=== PATIENT | male | born 2000 | race Caucasian/White ===

== ENCOUNTER 2021-04-07 20:44 | Emergency (ER) | payer OTHER ==
[2021-04-07 22:33] LABS: EOSINOPHIL 0.1 % (0-5); HCT 43.9 % (42.0-52.0); HGB 14.8 g/dl (13.2-18.0); LYMPHOCYTE 51.3 % (15-48); MCH 28.8 pg (25.0-31.0); MCHC 33.7 g/dL (32.0-36.0); MCV 85.4 fL (78.0-100.0); MONOCYTE 7.7 % (0-12); MPV 8.7 fL (6.0-9.5); NRBC 0; PLT 196 K/uL (150-400); RBC 5.14 M/uL (4.70-6.00); RDW 12.8 % (11.5-14.0); WBC 14.2 K/uL (4.0-10.5)
[2021-04-07 22:48] LABS: NEUTROPHIL 39.5 % (41-80)
[2021-04-07 22:52] LABS: ALBUMIN 3.8 g/dL (3.4-5.0); BILIRUBIN - TOTAL 0.6 mg/dL (0.2-1.0); BUN/CREAT RATIO (CALC) 9.2 RATIO; CREATININE 0.98 mg/dL (0.67-1.17); GLOBULIN (CALCULATION) 3.7 g/dL; POTASSIUM 3.8 mmol/L (3.5-5.1); TOTAL PROTEIN 7.5 g/dL (6.4-8.2)
[2021-04-07 23:37] LABS: BILIRUBIN NEGATIVE (NEGATIVE); BLOOD NEGATIVE Ery/uL (NEGATIVE); CLARITY CLEAR (CLEAR); COLOR YELLOW (YELLOW); GLUCOSE (U) NORMAL (NORMAL); LEUKOCYTES NEGATIVE Leu/uL (NEGATIVE); NITRITE NEGATIVE (NEGATIVE); PROTEIN NEGATIVE (NEGATIVE); SPECIFIC GRAVITY 1.015 (1.001-1.030); UROBILINOGEN 0.2 mg/dL (0.2-1.0)
[2021-04-08] MEDS ORDERED: VENTOLIN HFA18 GM INH (18:53)
[2021-04-08] MEDS ORDERED: PREDNISONE 20MG20 MG PO (18:53)
== END 2021-04-08 01:08 | disposition home or self-care (01) ==
LOC: FER 20:44
PROVIDERS: Nurse Practitioner Family
DX: R06.02 Shortness of breath (principal)
CPT/HCPCS: 36415; 71046; 80053; 81003; 85025; J7030

== ENCOUNTER 2021-04-08 13:55 | Emergency (ER) | payer OTHER ==
[2021-04-08 15:47] LABS: BASOPHIL 1.3 % (0-2); EOSINOPHIL 0.1 % (0-5); HCT 46.3 % (42.0-52.0); HGB 15.7 g/dl (13.2-18.0); MCHC 33.9 g/dL (32.0-36.0); MCV 85.4 fL (78.0-100.0); MONOCYTE 7.9 % (0-12); MPV 9.1 fL (6.0-9.5); NEUTROPHIL 35.4 % (41-80); NRBC 0; PLT 196 K/uL (150-400); RBC 5.42 M/uL (4.70-6.00); RDW 12.9 % (11.5-14.0); WBC 16.5 K/uL (4.0-10.5)
[2021-04-08 15:52] LABS: LYMPHOCYTE 54.9 % (15-48)
[2021-04-08 15:59] LABS: ALBUMIN 3.7 g/dL (3.4-5.0); BILIRUBIN - TOTAL 0.7 mg/dL (0.2-1.0); BUN/CREAT RATIO (CALC) 9.7 RATIO; CREATININE 0.93 mg/dL (0.67-1.17); GLOBULIN (CALCULATION) 3.8 g/dL; POTASSIUM 4.1 mmol/L (3.5-5.1); TOTAL PROTEIN 7.5 g/dL (6.4-8.2)
[2021-04-08 16:57] LABS: LACTIC ACID 1.2 mmol/L (0.4-1.9)
[2021-04-08] MEDS ORDERED: VENTOLIN HFA18 GM INH (18:53)
[2021-04-08] MEDS ORDERED: PREDNISONE 20MG20 MG PO (18:53)
== END 2021-04-08 19:30 | disposition home or self-care (01) ==
LOC: FER 13:55
PROVIDERS: Emergency Medicine; Nurse Practitioner Family
DX: R06.02 Shortness of breath (principal); J03.90 Acute tonsillitis, unspecified
CPT/HCPCS: 36415; 70491; 80053; 83605; 85025; 94664; J1100; J1885; J7030; Q9967